=== PATIENT | female | born 1965 | race Caucasian/White ===

== ENCOUNTER 2020-09-24 09:41 | Emergency (ER) | payer OTHER, SELFPAY ==
--- NOTE | ~2020-09-24 | CT_ITS ---
EXAMINATION: CT abdomen pelvis w con EXAM DATE: 09/24/2020 11:49 INDICATION: Flank pain, diarrhea, lower abdominal pain. TECHNIQUE: Spiral CT of the abdomen and pelvis was performed following intravenous injection of 100 m L Omnipaque 350. Axial, coronal and sagittal images were reviewed. The dose-length product (DLP) fo r this examination was 634.67 mGy-cm. The exposure was tailored according to patient size (auto mA e xposure control), and iterative reconstruction (ASIR) was used as additional dose reduction technique . There is no prior study for comparison. FINDINGS: The liver, spleen, adrenal glands and pancreas are unremarkable. There are cholecystectomy clips. Portal and splenic veins are patent. Kidneys enhance symmetrically. There is no hydronephr osis. There is IUD which appears to be centrally located within the endometrium, expected position. The bladder is unremarkable. There is no retroperitoneal or pelvic lymphadenopathy. The appendix is normal. The stomach and small bowel are unremarkable. There is mild scattered coloni c diverticulosis. There is no adjacent inflammatory change to suggest diverticulitis. No free intra peritoneal gas. The heart is normal in size. There are no pericardial or pleural effusions. The l deo bases are unremarkable. Mild to moderate lumbar levoscoliosis. IMPRESSION: 1. No acute intra-abdominal findings. Reviewed, dictated and finalized at location A. H FILLER
--- NOTE | ~2020-09-24 | XR_ITS ---
EXAMINATION: XR chest 1V portable EXAM DATE: 09/24/2020 11:18 INDICATION: cough, fever TECHNIQUE: Portable AP frontal chest x-ray was obtained. Comparison is made to prior examination from 09/11/2010. FINDINGS: The lungs are clear. There are no pleural effusions. The cardiomediastinal silhouette is within normal limits. There is no pneumothorax suspected. The bones and soft tissues are unremarkab le. IMPRESSION: No acute cardiopulmonary findings. Reviewed, dictated and finalized at location A. U[facility] DIRECTOR
[2020-09-24 09:46] VITALS: BP 141/84; PULSE 94; RESP 18; TEMP 36.6; O2SAT 99
[2020-09-24 10:35] LABS: Basophils Percent Auto 0.8 % (0.2-1.2); Eosinophils Percent Auto 0.2 % (0-4.4); Hematocrit 45.6 % (37.0-47.0); Immature Granulocyte Absolute 0.02 K/mm3 (0.00-0.031); Immature Granulocyte Percent A 0.4 % (0-0.5); Lymphocytes Absolute Auto 1.06 K/mm3 (0.9-3.2); Lymphocytes Percent Auto 22.4 % (18.3-44.2); Mean Corpuscular HGB Conc 35.1 g/dl (32-36); Mean Corpuscular Hemoglobin 31.1 pg (26-34); Mean Corpuscular Volume 88.7 fl (80-100); Mean Platelet Volume 10.1 fl (7.4-10.4); Monocytes Absolute Auto 0.7 K/mm3 (0.1-0.6); Monocytes Percent Auto 14.2 % (2.6-8.5); Neutrophils Absolute Auto 2.9 K/mm3 (1.3-6.7); Platelet Count Result 203 k/mm3 (150-375); Red Blood Count 5.14 M/mm3 (4.2-5.4); Red Cell Distribution Width 11.9 % (11.5-14.5); White Blood Count 4.7 K/mm3 (4.5-10.0)
[2020-09-24 10:37] LABS: Add Urine Microscopic? NO; Appearance Urine Clear (Clear); Bilirubin Urine Negative (Negative); Blood Urine Negative (Negative); Color Urine Straw (Yellow); Glucose Urine UA Negative (Negative); Ketones Urine Negative (Negative); Leukocyte Esterase Ur Negative LEU/UL (Negative); Nitrate Urine Negative (Negative); Protein Urine Negative (Negative); Specific Grav Ur 1.011 (1.001-1.035); Urobilinogen Urine Negative mg/dL (<2.0)
--- NOTE | 2020-09-24 10:45 | ED.BACK ---
HPI - Back Pain/Injury General Chief Complaint: Back Pain/Injury <Brittney Alejandro PA-C - Last Filed: 09/24/20 12:58> Stated Complaint: right flank pain <ADOLPH Valle Last Filed: 09/24/20 12:58> Time Seen by Provider: 09/24/20 10:17 <Brittney Alejandro PA-C - Last Filed: 09/24/20 12:58> Source: patient <ADOLPH Valle Last Filed: 09/24/20 12:58> Mode of arrival: ambulatory <ADOLPH Valle Last Filed: 09/24/20 12:58> Limitations: no limitations <ADOLPH Valle Last Filed: 09/24/20 12:58> History of Present Illness HPI Narrative: This is a 55-year-old female that presents the emergency department for cold symptoms x4 days. Reports she has had fever, cough, sore throat, nausea, and diarrhea. Reports over the last 2 days she started to have right flank pain that is intermittent and sharp in nature. No known injuries or trauma. Reports she had a Covid test at the beginning of symptoms that was negative. Denies chest pain, shortness of breath, hematochezia, or lower extremity edema <Brittney Alejandro PA-C - Last Filed: 09/24/20 12:58> Related Data Home Medications: Home Medications Medication Instructions Recorded Confirmed Adults Multivitamin 09/24/20 Daily Probiotic 09/24/20 ascorbate calcium (vitamin C) 09/24/20 chlorthalidone 09/24/20 omeprazole 09/24/20 venlafaxine mg PO 09/24/20 vit C-vit [id number] 09/24/20 <ADOLPH Valle Last Filed: 09/24/20 12:58> Allergies/Adverse Reactions: Allergies Allergy/AdvReac Type Severity Reaction Status Date / Time terbinafine Allergy Unknown RASH, Verified 09/24/20 09:48 SWELLING <ADOLPH Valle Last Filed: 09/24/20 12:58> Review of Systems Review of Systems: Narrative: CONSTITUTIONAL: Denies fever CARDIOVASCULAR: Denies chest pain, or edema. RESPIRATORY: Reports cough. Denies dyspnea. GASTROINTESTINAL: Reports nausea and diarrhea. Denies abdominal pain, vomiting GENITOURINARY: Denies dysuria or hematuria. MUSCULOSKELETAL: Reports back pain <Brittney Alejandro PA-C - Last Filed: 09/24/20 12:58> All systems reviewed & are unremarkable except as noted in HPI and below <Brittney Alejandro PA-C - Last Filed: 09/24/20 12:58> [facility] Past Medical History Medical History: Medical History (Updated 09/24/20 @ 12:58 by Brittney Alejandro PA-C) History of gastroesophageal reflux (GERD) <Brittney Alejandro PA-C - Last Filed: 09/24/20 12:58> Surgical History Surgical History: Surgical History (Updated 09/24/20 @ 10:48 by Brittney Alejandro PA-C) History of section History of cholecystectomy <Brittney Alejandro PA-C - Last Filed: 09/24/20 12:58> Social History Social History: Social History (Updated 09/24/20 @ 10:48 by Brittney Alejandro PA-C) Smoking status: Never smoker Gender identity (if verbalized by the patient): Female <Brittney Alejandro PA-C - Last Filed: 09/24/20 12:58> Exam Narrative: Exam Narrative: GENERAL: Well-appearing, well-nourished, and in no acute distress. HEAD: Normocephalic, atraumatic. EYES: EOMI. ENT: Nares clear, no rhinorrhea or epistaxis. Mucous membranes moist. Oropharynx without tonsillar hypertrophy exudate or other lesions. NECK: Supple. No adenopathy or masses. CHEST: Clear to auscultation. No respiratory distress. No wheezes rales or rhonchi HEART: Regular rate and rhythm. No murmur heard. Normal peripheral pulses. ABDOMEN: Soft, nondistended, normal active bowel sounds. Mild tenderness to palpation throughout the lower abdomen, without guarding. No CVA tenderness EXTREMITIES: Normal range of motion. No edema. SKIN: Warm, dry, no rash. NEURO: No focal deficits. Alert and oriented x3. PSYCH: Normal mood and affect <Brittney Alejandro PA-C - Last Filed: 09/24/20 12:58> Course Vital Signs Vital signs: Vital Signs Temperature 98 F 09/24/20 09:46 Pulse Rate 94 09/24
[2020-09-24 10:49] LABS: Alanine Aminotransferase 35 U/L (4-35); Albumin Level 4.8 g/dL (3.5-5.1); Alkaline Phosphatase 78 U/L (38-126); Anion Gap 8 mmol/L (8-16); Aspartate Amino Transferase 46 U/L (14-36); Bilirubin,Total 0.9 mg/dL (0.2-1.3); Blood Urea Nitrogen 13 mg/dL (7-17); Calcium 9.6 mg/dL (8.4-10.2); Carbon Dioxide 38 mmol/L (22-30); Chloride 93 mmol/L (98-107); Estimated CRCL calculation 75 ml/min; Estimated Glomerular Filt Rate > 60; Glucose 105 mg/dL (65-105); Lipase 94 U/L (23-300); Potassium 3.2 mmol/L (3.4-5.0); Sodium 139 mmol/L (137-145)
[2020-09-24 11:09] VITALS: BP 154/86; PULSE 82; RESP 20; O2SAT 96
[2020-09-24] MEDS: POTASSIUM CHLORIDE 20 MEQ TABLET 40 MEQ PO (12:06)
[2020-09-24 12:07] VITALS: BP 147/89; PULSE 85; RESP 20; O2SAT 98
[2020-09-24 13:05] VITALS: BP 142/88; PULSE 82; RESP 20; O2SAT 98
== END 2020-09-24 13:08 | disposition home or self-care (01) ==
PROVIDERS: Physician Assistant; Emergency Provider General Practice
DX: B34.9 Viral infection, unspecified (principal); E87.6 Hypokalemia; K21.9 Gastro-esophageal reflux disease without esophagitis
CPT/HCPCS: 36415; 71045; 74177; 80053; 81003; 81025; 83690; 85025; 87804; 99284; A9270; Q9967